=== PATIENT | male | born 1990 | race Caucasian/White ===

== ENCOUNTER 2018-03-12 17:02 | Emergency (ER) | payer BC ==
[~2018-03-12] VITALS: Ht 177.8 cm; Wt 86.4 kg
[2018-03-12 17:08] VITALS: BP 148/92; Ht 177.8 cm; Wt 86.4 kg
[2018-03-12] MEDS ORDERED: ULTRAM50 MG PO (19:57)
== END 2018-03-12 20:16 | disposition home or self-care (01) ==
LOC: D.ER 17:02
DX: S00.83XA Contusion of other part of head, initial encounter (principal); S60.211A Contusion of right wrist, initial encounter; V43.52XA Car driver injured in collision with other type car in traffic accident, initial encounter; Y93.89 Activity, other specified; Y92.410 Unspecified street and highway as the place of occurrence of the external cause; S00.511A Abrasion of lip, initial encounter